=== PATIENT | female | born 1995 | race Caucasian/White ===

== ENCOUNTER 2018-05-05 09:09 | Outpatient (CLI) ==
[2016-09-04 10:16] VITALS: BMI 34.5
== END 2018-05-05 09:10 | disposition home or self-care (01) ==
LOC: LAB 09:09
PROVIDERS: ATTEND Family Medicine
DX: Z00.00 Encounter for general adult medical examination without abnormal findings (principal)
CPT/HCPCS: 36415; 80053; 81001; 84439; 84443; 84703; 85025; 93005; 93010